=== PATIENT | female | born 1985 ===

== ENCOUNTER 2019-03-22 17:36 | Emergency (ER) | payer BC ==
[2019-03-22 17:46] VITALS: BP 135/90
--- NOTE | 2019-03-22 18:24 | ED ---
GI/ HPI - HPI Summary HPI Summary: 33 yo WF p/w urinary frequency/urgency and pain at end of voiding x 1 week associated with left flank and left LBP, denies f/c/n/v/d. - History of Current Complaint Chief Complaint: UCGU Time Seen by Provider: 03/22/19 18:00 Stated Complaint: URINARY COMPLAINT Hx Obtained From: Patient Hx Last Menstrual Period: 03/16/2019 Onset/Duration: Started Days Ago Timing: Constant Severity: Moderate Current Severity: Moderate Pain Intensity: 2 - Allergy/Home Medications Allergies/Adverse Reactions: Allergies Allergy/AdvReac Type Severity Reaction Status Date / Time No Known Allergies Allergy Verified 03/22/19 17:46 Home Medications: Home Medications Norgestimate-Eth Estradiol(NF) [Ortho Tri-Cyclen (NF)] 03/22/19 [History] PMH/Surg Hx/FS Hx/Imm Hx Previously Healthy: Yes Cardiovascular History: Denies: Hx Hypertension - Surgical History Surgery Procedure, Year, and Place: broken ankle 2005 Infectious Disease History: No Infectious Disease History: Reports: Traveled Outside the [place] in Last 30 Days - [place] - Social History Alcohol Use: Occasionally Substance Use Type: Reports: None Smoking Status (MU): Never Smoked Tobacco Review of Systems Constitutional: Negative Negative: Fever, Chills Eyes: Negative ENT: Negative Cardiovascular: Negative Respiratory: Negative Gastrointestinal: Negative Positive: see HPI, frequency, flank pain, pain, urgency Musculoskeletal: Negative Skin: Negative Neurological: Negative Psychological: Normal All Other Systems Reviewed And Are Negative: Yes Physical Exam - Summary Physical Exam Summary: Vital Signs Reviewed: Yes Eye Exam: Normal Eyes: Positive: Conjunctiva Clear ENT: Positive: Normal ENT inspection Neck: Positive: Supple Respiratory Exam: Normal Respiratory: Positive: Lungs clear Cardiovascular Exam: Normal Cardiovascular: Positive: RRR Abdomen Description: Positive: left CVA tenderness, left flank tenderness, mild Musculoskeletal Exam: Normal Neurological Exam: Normal Psychological Exam: Normal Skin Exam: Normal Vital Signs On Initial Exam: Initial Vitals Temp Pulse Resp BP Pulse Ox 37.6 C 73 16 135/90 100 03/22/19 17:40 03/22/19 17:40 03/22/19 17:40 03/22/19 17:40 03/22/19 17:40 Diagnostics - Vital Signs Vital Signs Temp Pulse Resp BP Pulse Ox 03/22/19 17:40 37.6 C 73 16 135/90 100 - Laboratory Lab Statement: Any lab studies that have been ordered have been reviewed, and results considered in the medical decision making process. GIGU Course/Dx - Course Assessment/Plan: UTI- positive UA with 3+LE and 3+ blood, can be renal colic if sx do not resolve with Bactrim DS, continue copious hydration and RTC if sx persist - Diagnoses Provider Diagnoses: UTI (urinary tract infection) Discharge - Sign-Out/Discharge Documenting (check all that apply): Patient Departure All imaging exams completed and their final reports reviewed: No Studies - Discharge Plan Condition: Stable Disposition: HOME Prescriptions: Sulfamethox/Trimethoprim DS* [Bactrim DS 800/160 TAB*] 1 tab PO BID 10 Days #20 tab Patient Education Materials: Urinary Tract Infection in Women (ED) - Billing Disposition and Condition Condition: STABLE Disposition: Home
== END 2019-03-22 18:25 | disposition home or self-care (01) ==
LOC: UCEAST 17:36
DX: N39.0 Urinary tract infection, site not specified (principal)
CPT/HCPCS: 81002; 81025; 87086; 99202; G0463

== ENCOUNTER 2019-03-26 18:22 | Emergency (ER) | payer BC ==
[2019-03-26 18:36] VITALS: BP 111/78
[2019-03-26] MEDS ORDERED: Naproxen TAB* 250 MG PO ONE (19:04)
--- NOTE | 2019-03-26 19:07 | UC ---
Back Pain HPI - HPI Summary HPI Summary: 33 yo female seen here 4-5 days ago with UTI symptoms and left flank pain on antibiotics no uti symptoms currently now has mild right sided back pain no f/c no n/v/d no abd pain no vag d/c or itch no change with positions - History of Current Complaint Chief Complaint: UCBackPain Stated Complaint: BACK PAIN Time Seen by Provider: 03/26/19 18:36 Hx Obtained From: Patient Hx Last Menstrual Period: 03/15/19 Onset/Duration: Gradual Onset, Lasting Days Timing: Constant Severity Initially: Mild Severity Currently: Mild Pain Intensity: 3 Pain Scale Used: 0-10 Numeric Character: Sharp, Aching, Throbbing, Spasmodic Aggravating Factor(s): Movement Alleviating Factor(s): Rest Associated Signs And Symptoms: Positive: Negative - Allergies/Home Medications Allergies/Adverse Reactions: Allergies Allergy/AdvReac Type Severity Reaction Status Date / Time No Known Allergies Allergy Verified 03/26/19 18:36 PMH/Surg Hx/FS Hx/Imm Hx - Surgical History Surgical History: Yes Surgery Procedure, Year, and Place: broken ankle 2005 - Family History Known Family History: Positive: Hypertension - Social History Alcohol Use: Occasionally Substance Use Type: None Smoking Status (MU): Never Smoked Tobacco Review of Systems All Other Systems Reviewed And Are Negative: Yes Constitutional: Positive: Negative Skin: Positive: Negative Eyes: Positive: Negative ENT: Positive: Negative Respiratory: Positive: Negative Cardiovascular: Positive: Negative Gastrointestinal: Positive: Negative Genitourinary: Positive: Negative Motor: Positive: Negative Neurovascular: Positive: Negative Musculoskeletal: Positive: Negative Neurological: Positive: Negative Psychological: Positive: Negative Physical Exam Triage Information Reviewed: Yes Appearance: Well-Appearing, No Pain Distress, Well-Nourished Vital Signs: Initial Vital Signs Temp 98.3 F 03/26/19 18:32 Pulse 68 03/26/19 18:32 Resp 16 03/26/19 18:32 BP 111/78 03/26/19 18:32 Pulse Ox 100 03/26/19 18:32 Vital Signs Reviewed: Yes Eyes: Positive: Conjunctiva Clear ENT: Positive: Hearing grossly normal, Nasal congestion, Nasal drainage. Negative: Trismus, Muffled voice, Dental tenderness Neck: Positive: Supple, Nontender, No Lymphadenopathy Respiratory: Positive: Lungs clear, Normal breath sounds, No respiratory distress, No accessory muscle use Cardiovascular: Positive: RRR, No Murmur, Pulses Normal Abdomen Description: Positive: Nontender, No Organomegaly, Soft, CVA Tenderness (R). Negative: CVA Tenderness (L) Bowel Sounds: Positive: Present Musculoskeletal: Positive: ROM Intact, No Edema Neurological: Positive: Alert Psychological Exam: Normal Skin Exam: Normal Back Pain Course/Dx - Differential Dx/Diagnosis Provider Diagnosis: Acute back pain Discharge - Sign-Out/Discharge Documenting (check all that apply): Patient Departure All imaging exams completed and their final reports reviewed: No Studies - Discharge Plan Condition: Stable Disposition: HOME Prescriptions: Naproxen [Naproxen 500 mg tab] 500 mg PO BID PRN #20 tablet PRN Reason: Pain Patient Education Materials: Back Pain (ED) Referrals: [facility] [Outside] - 3 Days Additional Instructions: I am at a loss to explain your back pain and why it switched from your left flank to your right Your urine sample here showed no blood or evidence of infection recheck for worsening pain/fever/vomiting or other new symptoms - Billing Disposition and Condition Condition: STABLE Disposition: Home
== END 2019-03-26 19:26 | disposition home or self-care (01) ==
LOC: UCEAST 18:22
DX: M54.5 Low back pain (principal); R10.9 Unspecified abdominal pain
CPT/HCPCS: 81002; 99212; A9270-GY; G0463

== ENCOUNTER 2023-01-30 22:31 | Inpatient (IN) ==
[2023-01-30] MEDS: Labetalol IV 5 MG/ML 20 ml VIAL IV PUSH ONE (23:18)
[2023-01-30 23:44] LABS: Urine Appearance Cloudy; Urine Bilirubin Negative (Negative); Urine Blood Negative (Negative); Urine Color Yellow; Urine Glucose Negative (Negative); Urine Ketones Negative (Negative); Urine Nitrite Negative (Negative); Urine Protein 2+(100 mg/dL) (Negative); Urine Specific Gravity 1.009 (1.002-1.030); Urine Urobilinogen Negative (Negative)
[2023-01-30 23:46] LABS: Hematocrit 36.7 % (35-45); Hemoglobin 12.8 g/dL (11.5-14.3); Mean Corpuscular Hemoglobin 34.5 pg (27-33); Mean Corpuscular Hgb Conc 35.1 g/dL (31-36); Mean Corpuscular Volume 98.4 fL (80-97); Red Blood Count 3.72 10^6/uL (3.63-4.92); Red Cell Distribution Width 13.8 % (12-17); White Blood Count 12.1 10^3/uL (3.8-11.8)
[2023-01-30 23:56] LABS: Albumin 2.9 g/dL (3.2-5.2); Calcium 9.1 mg/dL (8.6-10.3); Potassium 3.9 mmol/L (3.5-5.0); Total Bilirubin 0.4 mg/dL (0.2-1.0)
[2023-01-30 23:57] LABS: Urine Benzodiazepine Screen None Detected (None Detect); Urine Cannabinoids Screen None Detected (None Detect); Urine Opiates Screen None Detected (None Detect)
[2023-01-31] LABS: Urine Bacteria Absent (Absent); Urine Red Blood Cell Trace(0-2/hpf) (Absent); Urine Squamous Epithelial Cell Present (Absent); Urine White Blood Cell Trace(0-5/hpf) (Absent)
[2023-01-31] MEDS ORDERED: Labetalol IV 5 MG/ML 20 ml VIAL IV PUSH ONE
[2023-01-31 00:02] LABS: Albumin/Globulin Ratio 1.2 (1-3); Creatinine, Serum 1.06 mg/dL (0.51-0.95); Globulin 2.5 g/dL (2-4); Total Protein 5.4 g/dL (6.4-8.9)
[2023-01-31] MEDS: Labetalol IV 5 MG/ML 20 ml VIAL IV PUSH ONE (00:03)
[2023-01-31] MEDS ORDERED: Magnesium Sulfate OB PREMIX 4 GM/100 ML BAG IV ONE (00:37)
[2023-01-31] MEDS ORDERED: Calcium Gluconate 1 GM/10 ML VIAL (in Pyxis) IV PUSH PRN (00:37)
[2023-01-31 00:40] LABS: ABS Basophils 0.1 10^3/uL (0.0-0.1); ABS Eosinophils 0.2 10^3/uL (0.0-0.5); ABS Lymphocytes 2.1 10^3/uL (1.0-4.8); ABS Monocytes 1.3 10^3/uL (0.0-0.9); ABS Neutrophils 8.4 10^3/uL (1.5-7.6); ABS Nucleated RBC 0.07 10^3/ul; Eosinophil % 1.7 %; Lymphocyte % 17.1 %; Mean Platelet Volume 11.2 fL (7.5-11.2); Nucleated Red Blood Cells % 0.6 /100 WBC (0.0-0.4); Platelet Count 96 10^3/uL (150-450)
[2023-01-31] MEDS ORDERED: ceFOXitin 2 GM IVPREMIX 2 GM/50 ML BAG IVPB ONE (00:45)
[2023-01-31] MEDS: Magnesium Sulfate OB PREMIX 40 GM/1,000 ML BAG IVPB SCH ×2 (01:17→18:44)
[2023-01-31] MEDS ORDERED: Morphine PF AMP (0.5MG/ML) 5 MG/10 ML AMP ONE (01:38)
[2023-01-31] MEDS ORDERED: fentaNYL 100 mcg/2 ml 50 MCG/ML VIAL ONE (01:38)
[2023-01-31] MEDS ORDERED: Oxytocin in LR 20,000 MILLI.UNIT/1,000 ML BAG IV ONE (02:12)
[2023-01-31] MEDS ORDERED: Naloxone 0.4 mg VIAL 0.4 mg/ml 1 ml VIAL IV PUSH PRN (03:06)
[2023-01-31] MEDS ORDERED: Acetaminophen IV 1 GM/100ML 1,000 MG/100 ML BAG IV PRN (03:06)
[2023-01-31] MEDS ORDERED: Ondansetron 4 mg VIAL 2 MG/ML 2 ml VIAL IV PRN (03:06)
[2023-01-31 03:23] LABS: Urine Appearance Clear; Urine Bilirubin Negative (Negative); Urine Blood 2+ (Negative); Urine Color Yellow; Urine Glucose Negative (Negative); Urine Ketones Negative (Negative); Urine Nitrite Negative (Negative); Urine Protein 2+(100 mg/dL) (Negative); Urine Specific Gravity 1.013 (1.002-1.030); Urine Urobilinogen Negative (Negative)
[2023-01-31] MEDS ORDERED: Glycerin ADULT 2.4 gm SUPP PR PRN (03:26)
[2023-01-31] MEDS ORDERED: Witch Hazel PAD JAR TOPICAL PRN (03:26)
[2023-01-31] MEDS ORDERED: Lactated Ringers 1000 ml BAG 1,000 ML IV SCH ×2 (04:00→07:00)
[2023-01-31] MEDS ORDERED: Dexamethasone IV 4 MG/ML VIAL 1 ml VIAL ONE (04:04)
[2023-01-31] MEDS ORDERED: Ondansetron 4 mg VIAL 2 MG/ML 2 ml VIAL ONE (04:04)
[2023-01-31 04:25] LABS: Urine Bacteria Absent (Absent); Urine Red Blood Cell 3+(>10/hpf) (Absent); Urine Squamous Epithelial Cell Present (Absent); Urine White Blood Cell Trace(0-5/hpf) (Absent)
[2023-01-31] MEDS ORDERED: Carboprost Tromethamine 250 mcg 1 ml VIAL IM ONE (05:04)
[2023-01-31] MEDS ORDERED: OXYTOCIN IV ONE (05:15)
[2023-01-31] MEDS ORDERED: LACTATED RINGERS IV ONE (05:15)
[2023-01-31] MEDS ORDERED: Carboprost Tromethamine 250 mcg 1 ml VIAL ONE (05:25)
[2023-01-31] MEDS: Metoclopramide 5 MG/ML VIAL (10 mg) IV PRN ×2 (05:29→10:59)
[2023-01-31] MEDS ORDERED: Lactated Ringers 1000 ml BAG 1,000 ML IV ONE (06:00)
[2023-01-31] MEDS ORDERED: Buffered Lidocaine 1% SYRIN 1 ml INTRADERM ONE (06:00)
[2023-01-31] MEDS ORDERED: Sodium Citrate/Citric Acid LIQ 15 ML UDC PO ONE (06:00)
[2023-01-31 10:19] LABS: Hemoglobin 10.1 g/dL (11.5-14.3); Mean Corpuscular Hemoglobin 34.6 pg (27-33); Mean Corpuscular Hgb Conc 34.9 g/dL (31-36); Mean Platelet Volume 11.2 fL (7.5-11.2); Platelet Count 122 10^3/uL (150-450); Red Blood Count 2.93 10^6/uL (3.63-4.92); Red Cell Distribution Width 13.5 % (12-17); White Blood Count 27.7 10^3/uL (3.8-11.8)
[2023-01-31 10:26] LABS: ABS Basophils 0.1 10^3/uL (0.0-0.1); ABS Lymphocytes 1.4 10^3/uL (1.0-4.8); ABS Monocytes 0.8 10^3/uL (0.0-0.9); ABS Neutrophils 25.3 10^3/uL (1.5-7.6); ABS Nucleated RBC 0.03 10^3/ul; Eosinophil % 0.1 %; Lymphocyte % 5.2 %; Nucleated Red Blood Cells % 0.1 /100 WBC (0.0-0.4)
[2023-01-31 10:27] LABS: Albumin 2.7 g/dL (3.2-5.2); Calcium 8.2 mg/dL (8.6-10.3); Potassium 4.5 mmol/L (3.5-5.0); Total Bilirubin 0.3 mg/dL (0.2-1.0)
[2023-01-31 10:32] LABS: Creatinine, Serum 1.11 mg/dL (0.51-0.95); Globulin 2.7 g/dL (2-4); Total Protein 5.4 g/dL (6.4-8.9); eGFR CKD-EPI 65.2 (>60)
[2023-02-01 07:41] LABS: Albumin 2.4 g/dL (3.2-5.2); Calcium 6.6 mg/dL (8.6-10.3); Creatinine, Serum 1.08 mg/dL (0.51-0.95); Globulin 2.4 g/dL (2-4); Potassium 5.1 mmol/L (3.5-5.0); Total Bilirubin 0.2 mg/dL (0.2-1.0); Total Protein 4.8 g/dL (6.4-8.9); eGFR CKD-EPI 67.4 (>60)
[2023-02-01 09:03] LABS: Hematocrit 21.7 % (35-45); Hemoglobin 7.5 g/dL (11.5-14.3); Mean Corpuscular Hemoglobin 35.1 pg (27-33); Mean Corpuscular Hgb Conc 34.7 g/dL (31-36); Mean Corpuscular Volume 101.1 fL (80-97); Mean Platelet Volume 10.7 fL (7.5-11.2); Platelet Count 127 10^3/uL (150-450); Red Blood Count 2.15 10^6/uL (3.63-4.92); Red Cell Distribution Width 13.6 % (12-17); White Blood Count 25.5 10^3/uL (3.8-11.8)
[2023-02-01 09:44] LABS: ABS Basophils 0.1 10^3/uL (0.0-0.1); ABS Eosinophils 0.1 10^3/uL (0.0-0.5); ABS Lymphocytes 3.5 10^3/uL (1.0-4.8); ABS Monocytes 1.5 10^3/uL (0.0-0.9); ABS Neutrophils 20.3 10^3/uL (1.5-7.6); ABS Nucleated RBC 0.04 10^3/ul; Eosinophil % 0.5 %; Lymphocyte % 13.9 %; Nucleated Red Blood Cells % 0.1 /100 WBC (0.0-0.4)
[2023-02-04 10:43] VITALS: BP 141/96
== END 2023-02-04 16:55 | disposition home or self-care (01) | DRG 540 ==
LOC: MCHOBOUT 22:31 → MCHOB 23:36
PROVIDERS: ADMIT Advanced Practice Midwife; ATTEND Obstetrics & Gynecology